=== PATIENT | male | born 1980 | race Caucasian/White ===

== ENCOUNTER 2023-03-07 22:10 | Emergency (ER) | payer BC, SELFPAY ==
[2023-03-07 22:13] VITALS: BP 146/84; PULSE 71; RESP 18; TEMP 36.6; O2SAT 99
--- NOTE | 2023-03-07 23:07 | PC.NURSE ---
Wound cleansed with saline.
--- NOTE | 2023-03-07 23:07 | ED.GENADULT ---
HPI - General Adult General Chief complaint: Wound/Laceration Stated complaint: arm lac Time Seen by Provider: 03/07/23 22:46 History of Present Illness HPI narrative: 43-year-old male presenting ED with forearm laceration. He was attempting but double line when child when he fell onto a piece of sheet metal and has a small laceration to his forearm. He was unable to see the wound due to location and came to the hospital for evaluation. Last Tdap was many years ago. No other injuries. Related Data Home Medications Medication Instructions Recorded Confirmed sertraline 100 mg tablet (Zoloft) 100 mg PO DAILY 12/10/20 06/10/21 Allergies Allergy/AdvReac Type Severity Reaction Status Date / Time No Known Allergies Allergy Verified 03/07/23 22:12 [facility] Social History Social History (Updated 12/10/20 @ 13:23 by Viviane Watkins [facility]) Smoking status: Never smoker Second hand tobacco smoke exposure: No Alcohol intake: current Substance use: never Substance use type: does not use Exam Narrative: APPEARANCE: No apparent distress. Head: atraumatic. EYES: EOMI, NOSE: Atraumatic NECK: Trachea midline RESPIRATORY: No increased rate of breathing CARDIOVASCULAR: RRR, ABDOMINAL: Non-distended MUSCULOSKELETAl: No obvious deformities NEURO: Alert. Moving 4/4 extremities SKIN:: 1 cm laceration over the left forearm no damage to internal structures, no foreign bodies noted PSYCHIATRIC: Normal affect Course Vital Signs Vital signs: Vital Signs Temperature 98 F 03/07/23 22:13 Pulse Rate 71 03/07/23 22:13 Respiratory Rate 18 03/07/23 22:13 Blood Pressure 146/84 H 03/07/23 22:13 Pulse Oximetry 99 03/07/23 22:13 Temperature 98 F 03/07/23 22:13 Pulse Rate 71 03/07/23 22:13 Respiratory Rate 18 03/07/23 22:13 Blood Pressure 146/84 H 03/07/23 22:13 Pulse Oximetry 99 03/07/23 22:13 Procedures Laceration Laceration 1: Date: 03/07/23 Site: upper extremity Side (If applicable): left Size (cm): 1 Description: linear Depth: simple, single layer Pre-repair: wound explored, irrigated and irrigated extensively ====== Skin Level ====== Skin layer closed with: dermabond ====== Subcutaneous Layer ====== ====== Muscle Layer ====== ====== Tendon Layer ====== Medical Decision Making MDM Narrative Medical decision making narrative: -Presentation: 43-year-old male presenting with laceration left forearm -DDX includes but is not limited to: Laceration, contusion, foreign bodies -Co-morbidities complicating care: None -Social determinants of health: Patient works as an environmental services assistant. He lives alone. -External Chart Review: None -Hx from independent Sources: None -Discussion of Management/Consultants: None -Independent interpretation of studies: None Dx tests considered but not ordered: None -Procedures: 1 cm laceration repair with Dermabond -Interventions: Motrin, Tylenol, Tdap -Shared decision making / Disposition: Patient wound is repaired with Dermabond. Return precautions given. -RX Vital Signs Vital Signs: Vital Signs Temperature 98 F 03/07/23 22:13 Pulse Rate 71 03/07/23 22:13 Respiratory Rate 18 03/07/23 22:13 Blood Pressure 146/84 H 03/07/23 22:13 Pulse Oximetry 99 03/07/23 22:13 Temperature 98 F 03/07/23 22:13 Pulse Rate 71 03/07/23 22:13 Respiratory Rate 18 03/07/23 22:13 Blood Pressure 146/84 H 03/07/23 22:13 Pulse Oximetry 99 03/07/23 22:13 Discharge Plan Discharge Clinical Impression: Laceration Patient Disposition: Home, Self-Care Condition: Stable Instructions: Antibiotic Form, Laceration (ED) Additional Instructions: Return emergency department if you develop signs of infection. Motrin Tylenol for pain control. Prescriptions: No Action sertraline [Zoloft] 100 mg tablet 1
[2023-03-07] MEDS: ACETAMINOPHEN 500 MG TABLET 1000 MG PO (23:14)
[2023-03-07] MEDS: IBUPROFEN 400 MG TABLET 800 MG PO (23:15)
[2023-03-07] MEDS: TETANUS,DIPHTHERIA,AC PERTUSSIS ADULT (0.5 ML) BOOSTRIX IM (23:16)
[2023-03-07 23:21] VITALS: BP 134/78; PULSE 86; RESP 16; O2SAT 100
== END 2023-03-07 23:25 | disposition home or self-care (01) ==
LOC: ANHED 23:16
PROVIDERS: Emergency Provider Emergency Medicine
DX: S51.812A Laceration without foreign body of left forearm, initial encounter (principal); Z23 Encounter for immunization; W26.8XXA Contact with other sharp object(s), not elsewhere classified, initial encounter
CPT/HCPCS: 12001; 90471; 90715; 99282; A9270

== ENCOUNTER 2024-10-15 21:20 | Emergency (ER) | payer BC, SELFPAY ==
--- NOTE | ~2024-10-15 | XR_ITS ---
EXAM: XR foot RT min 3V DATE: 10/15/2024 21:54 HISTORY: right toe injury . COMPARISON: None available. FINDINGS: Normal mineralization. Comminuted nondisplaced fracture of the right first proximal phalan x, fracture lines extend to both the MTP joint and first interphalangeal joint. No lytic or blastic l esion. Moderate degenerative change at the first MTP joint. Minimal plantar enthesopathy No erosion o r periosteal change. Soft tissues within normal limits. IMPRESSION: Nondisplaced, comminuted intra-articular fracture of the right first proximal phalanx. Reviewed, dictated and finalized at location [facility] [employer] [employer] IMPRESSION: Nondisplaced, comminuted intra-articular fracture of the right firs t proximal phalanx.
[2024-10-15 21:33] VITALS: BP 162/86; PULSE 64; RESP 13; TEMP 36.6; O2SAT 100
[2024-10-15 23:47] VITALS: BP 154/99; PULSE 74; RESP 16; TEMP 36.7; O2SAT 98
--- NOTE | 2024-10-15 23:47 | ED_ITS ---
HPI - Extremity Injury (Lower) General Chief Complaint: Extremity Injury, Lower Stated Complaint: right big toe possible broken Time Seen by Provider: 10/15/24 23:43 Source: patient Mode of arrival: ambulatory Limitations: no limitations History of Present Illness HPI Narrative: This is a 44-year-old male who presents to the ED for chief complaint of right great toe pain after accidentally kicking a binge during indoor soccer to today. This occurred around 1200. He has been ambulatory. Reports he is just here to see if it is broken. Denies any further injury Related Data Home Medications Medication Instructions Recorded Confirmed sertraline 100 mg tablet (Zoloft) 100 mg PO DAILY 12/10/20 06/10/21 Allergies Allergy/AdvReac Type Severity Reaction Status Date / Time No Known Allergies Allergy Verified 10/15/24 21:21 Review of Systems Review of Systems: All systems as dictated in [facility] Social History Social History (Updated 12/10/20 @ 13:23 by Viviane Watkins [facility]) Smoking status: Never smoker Second hand tobacco smoke exposure: No Alcohol intake: current Substance use: never Substance use type: does not use Exam Narrative: GENERAL: Well-appearing, well-nourished, and in no acute distress. HEAD: Normocephalic, atraumatic. MSK: RLE: Ecchymosis and tenderness to the right great toe. No deformity. No tenderness throughout the rest of the foot. LLE: Benign SKIN: Warm, dry, no rash. NEURO: Alert and oriented x4. No focal deficits. PSYCH: Normal mood and affect. Course Vital Signs Vital signs: Vital Signs Temperature 98 F 10/15/24 21:33 Pulse Rate 64 10/15/24 21:33 Respiratory Rate 13 10/15/24 21:33 Blood Pressure 162/86 H 10/15/24 21:33 Pulse Oximetry 100 10/15/24 21:33 Oxygen Delivery Room Air 10/15/24 21:33 Temperature 98.1 F 10/15/24 23:47 Pulse Rate 74 10/15/24 23:47 Respiratory Rate 16 10/15/24 23:47 Blood Pressure 154/99 H 10/15/24 23:47 Pulse Oximetry 98 10/15/24 23:47 Oxygen Delivery Room Air 10/15/24 21:33 MDM - Extremity Injury (Lower) MDM Narrative Medical decision making narrative: 44-year-old male presenting for right great toe injury. Exam shows ecchymotic, tender right great toe. Foot exam is otherwise benign. X-rays do show comminuted nondisplaced fracture of the proximal phalanx of the right great toe. Patient is comfortable using his shoes for flat sole shoe. Pt will be d ischarged in stable condition. Return precautions given and supportive measures discussed. Pt is understanding and agreeable with plan for discharge and follow-up with PCP. Discharge Plan Discharge Clinical Impression: Closed fracture of right great toe Patient Disposition: Home, Self-Care Condition: Stable Instructions: Antibiotic Form Additional Instructions: Exam and imaging today do show fracture of the right big toe. Please use flat sole shoe at all times. You can tape the 1st 2 toes together for comfort if needed. Otherwise take ibuprofen Tylenol for pain control and follow-up with PCP. If you have any new or worsening symptoms please return to the ER for further evaluation. Prescriptions: No Action sertraline [Zoloft] 100 mg tablet 100 mg PO DAILY Follow-up/Referrals: PHYSICIAN NOT ON STAFF,NONSTAFF [Non-Staff] - Time of Disposition: 23:49
== END 2024-10-16 00:17 | disposition home or self-care (01) ==
LOC: ANHED 23:57
PROVIDERS: Emergency Provider Physician Assistant
DX: S92.414A Nondisplaced fracture of proximal phalanx of right great toe, initial encounter for closed fracture (principal); W22.8XXA Striking against or struck by other objects, initial encounter; Y93.66 Activity, soccer
CPT/HCPCS: 73630; 99283